=== PATIENT | male | born 1980 | race Caucasian/White ===

== ENCOUNTER 2023-08-10 01:23 | Emergency (ER) | payer MEDICAID ==
[~2023-08-10] VITALS: Ht 188 cm; Wt 111.3 kg
[2023-08-10 01:42] VITALS: BP 131/78; PULSE 114; TEMP 98.3; O2SAT 95
[2023-08-10] MEDS ORDERED: vancomycin inj 1,000 MG in normal saline 250ml IV soln 250 ML IV ONE (02:10)
[2023-08-10] MEDS: ondansetron/PF 4mg/2ml inj IV ONE (02:17)
[2023-08-10] MEDS ORDERED: SULF1TAB49 PO (02:17)
[2023-08-10] MEDS ORDERED: DOXY-457 PO (02:17)
[2023-08-10] MEDS: DOXYCYCLINE 100MG CAPSULE PO STA (02:22)
[2023-08-10] MEDS: sulfamethoxazole/trimethoprim DS (800/160mg) tablet PO ONE (02:23)
[2023-08-10] MEDS: bacitracin 15gm ointment TP ONE (02:23)
[2023-08-10] MEDS: vancomycin/NS 1 GM ADD-VANTAGE 250 ML IV ONE (02:31)
[2023-08-10] MEDS ORDERED: ketorolac trometh. 30mg/ml inj. IV ONE (02:45)
[2023-08-10] MEDS: acetaminophen 325mg tablet PO ONE (03:04)
[2023-08-10 03:05] VITALS: RESP 16
[2023-08-10] MEDS: ketorolac tromethamine 15mg/ml inj. IV ONE (03:05)
== END 2023-08-10 04:16 | disposition home or self-care (01) ==
LOC: ER 01:24
DX: N49.2 Inflammatory disorders of scrotum (principal); B95.62 Methicillin resistant Staphylococcus aureus infection as the cause of diseases classified elsewhere
CPT/HCPCS: 36415; 87040; 96365; 96375; 99284; J1885; J3370; A6449